=== PATIENT | male | born 1960 | race African-American/Black ===

== ENCOUNTER 2019-04-15 09:56 | Inpatient (IN) | payer OTHER ==
--- NOTE | 2019-04-15 10:11 | BHS.RME ---
Substance Use & Tx History - Substance Use History Alcohol Substance amount: 2-3 pints vodka Frequency of use: Daily Substance route: Oral Date of Last Use: 04/15/19 Nicotine Substance amount: 4-5 ciggs Frequency of use: Daily Substance route: Smoking Date of Last Use: 04/14/19 Cocaine (Powder) Substance amount: $50 Frequency of use: Less than 3 times per week Substance route: Inhalation (ex: sniffing or snorting), Smoking Date of Last Use: 04/14/19 PCP Substance amount: 2-3 bags Frequency of use: Less than 3 times per week Substance route: Smoking Date of Last Use: 04/12/19 Physical/Psych/Mental Status - Behavior General Behavior: Increased activity (restlessness, agitation) Eye Contact: Normal - Cooperativeness Cooperativeness: Cooperative - Thinking Thought Processes: Tight, Logical, Goal Directed Thought content: Future oriented - Physical Health Problems Is patient presently having any pain?: No Does patient presently have any injuries (include location): No Does patient currently have a fever: No Is patient : No CIWA Nausea/Vomitin-No Nausea/No Vomiting Muscle Tremors: None Anxiety: 0-No Anxiety, at Ease Agitation: 0-Normal Activity Paroxysmal Sweats: No Perspiration Orientation: 0-Oriented Tacttile Disturbances: 0-None Auditory Disturbances: 0-None Visual Disturbances: 0-None Headache: 1-Very Mild CIWA-Ar Total Score: 1
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
[2019-04-15] MEDS ORDERED: hydrOXYzine PAMOATE 25 MG CAPSULE (FP) PO PRN (11:39)
[2019-04-15] MEDS ORDERED: chlordiazePOXIDE HCL 25 MG CAPSULE PO PRN (11:39)
[2019-04-15] MEDS ORDERED: IBUPROFEN 400 MG TABLET (FP) PO PRN (11:39)
[2019-04-15] MEDS ORDERED: MAG HYDROX/AL HYDROX/SIMETH 30 ML UNIT-DOSE CUP PO PRN (11:39)
[2019-04-15] MEDS ORDERED: BISMUTH SUBSALICYLATE 524 MG/30 ML UD PO PRN (11:39)
[2019-04-15] MEDS ORDERED: MENTHOL/PHENOL 1 EACH UD MM PRN (11:39)
[2019-04-15] MEDS ORDERED: MELATONIN 5 MG TABLETS PO PRN (11:39)
[2019-04-15] MEDS ORDERED: MAGNESIUM HYDROX 2400MG/30ML ORAL SUSPENSION 30 ML CUP PO PRN (11:39)
[2019-04-15] MEDS ORDERED: ACETAMINOPHEN 325 MG TABLET (FP) PO PRN ×2 (11:39)
[2019-04-15] MEDS ORDERED: MAGNESIUM CITRATE 300 ML BOTTLE PO PRN (11:39)
[2019-04-15] MEDS ORDERED: METHOCARBAMOL 500 MG TABLET PO PRN (11:39)
[2019-04-15 11:59] VITALS: BMI 27.3
[2019-04-15] MEDS: HYDROCHLOROTHIAZIDE 25 MG TABLET (FP) PO SCH (13:59)
[2019-04-15] MEDS ORDERED: INSULIN LISPRO 20 UNIT SQ SCH (14:00)
[2019-04-15] MEDS: ASPIRIN COATED 81 MG TABLET.EC PO SCH (14:00)
[2019-04-15] MEDS: AMOX TR/POT CLAV 875MG/125MG TABLETS (FP) PO SCH ×2 (14:00→23:03)
[2019-04-15] MEDS: chlordiazePOXIDE HCL 25 MG CAPSULE PO SCH ×3 (14:00→23:03)
[2019-04-15 15:06] LABS: HEMATOCRIT 43.8 % (35.4-49); MCH 26.7 pg (25.7-33.7); MEAN CELL VOLUME 83.4 fl (80-96); MEAN PLT VOLUME 10.5 fl (7.5-11.1); PLATELET COUNT 230 K/MM3 (134-434); RBC 5.26 M/mm3 (4.00-5.60); WHITE BLOOD COUNT 7.4 K/mm3 (4.0-10.0)
[2019-04-15] MEDS ORDERED: INSULIN (NOVOLOG) ASPART 100 UNITS/ML 10ML VIAL SQ SCH (15:23)
[2019-04-15] MEDS: PIOGLITAZONE HCL 45 MG PO SCH (15:26)
[2019-04-15] MEDS: CLOTRIMAZOLE/BETAMET DIPROP 15 GM TUBE TP SCH ×2 (15:28→23:02)
[2019-04-15] MEDS: DOCUSATE SODIUM 100 MG CAPSULE (FP) PO SCH ×2 (15:29→23:03)
[2019-04-15] MEDS: GABAPENTIN 300 MG CAPSULE PO SCH ×2 (15:29→23:03)
[2019-04-15] MEDS: NICOTINE 7 MG/24 HOURS TOPICAL PATCH TD SCH (15:33)
[2019-04-15] MEDS ORDERED: INSULIN SLIDING SCALE (NOVOLOG) 1 VIAL SQ SCH (16:30)
[2019-04-15] MEDS ORDERED: metFORMIN HCL 500 MG TABLET (FP) PO SCH (16:30)
[2019-04-15] MEDS: METFORMIN HCL 1000 MG PO SCH (17:13)
[2019-04-15] MEDS: INSULIN SLIDING SCALE (NOVOLOG) 1 VIAL SQ SCH ×2 (19:15→23:04)
[2019-04-15] MEDS ORDERED: INSULIN (LEVEMIR) 100 UNITS/ML UNITS SQ SCH (22:00)
[2019-04-15] MEDS ORDERED: ATORVASTATIN CA 20 MG TABLET (FP) PO SCH (22:00)
[2019-04-15] MEDS: BASAGLAR U SQ SCH (23:02)
[2019-04-15] MEDS: [UNRECOGNIZED DRUG - OTHER] SQ SCH (23:02)
[2019-04-15] MEDS: THIAMINE HCL 100 MG TABLET (FP) PO SCH (23:03)
[2019-04-15] MEDS: SIMVASTATIN 40MG TAB PO SCH (23:04)
[2019-04-16] MEDS: GABAPENTIN 300 MG CAPSULE PO SCH ×3 (06:10→22:57)
[2019-04-16] MEDS: DOCUSATE SODIUM 100 MG CAPSULE (FP) PO SCH ×3 (06:14→22:57)
[2019-04-16] MEDS: METFORMIN HCL 1000 MG PO SCH ×2 (06:15→18:37)
[2019-04-16] MEDS: chlordiazePOXIDE HCL 25 MG CAPSULE PO SCH ×4 (06:15→22:58)
[2019-04-16] MEDS: INSULIN SLIDING SCALE (NOVOLOG) 1 VIAL SQ SCH ×3 (06:44→18:37)
[2019-04-16] MEDS: NICOTINE 7 MG/24 HOURS TOPICAL PATCH TD SCH (09:18)
[2019-04-16] MEDS: AMOX TR/POT CLAV 875MG/125MG TABLETS (FP) PO SCH ×2 (09:18→22:56)
[2019-04-16] MEDS: HYDROCHLOROTHIAZIDE 25 MG TABLET (FP) PO SCH (09:18)
[2019-04-16] MEDS: ASPIRIN COATED 81 MG TABLET.EC PO SCH (09:18)
[2019-04-16] MEDS ORDERED: PRENATAL VITAMINS W/ FOLIC ACID TABLET (FP) PO SCH (10:00)
[2019-04-16] MEDS: CLOTRIMAZOLE/BETAMET DIPROP 15 GM TUBE TP SCH ×2 (10:33→22:57)
[2019-04-16] MEDS: PIOGLITAZONE HCL 45 MG PO SCH (10:34)
[2019-04-16 10:35] LABS: ALBUMIN 3.9 g/dl (3.4-5.0); BILIRUBIN,TOTAL 0.2 mg/dL (0.2-1); BLOOD UREA NITROGEN 25.7 mg/dL (7-18); CALCIUM 10.2 mg/dL (8.5-10.1); CREATININE 1.3 mg/dL (0.55-1.3); POTASSIUM 4.4 mmol/L (3.5-5.1)
[2019-04-16] MEDS ORDERED: INSULIN SLIDING SCALE (NOVOLOG) 1 VIAL SQ ONE (11:57)
[2019-04-16 13:12] VITALS: BP 130/83; PULSE 83; TEMP 97.8
--- NOTE | 2019-04-16 15:38 | PN ---
[facility] CIWA - CIWA Score Nausea/Vomitin-No Nausea/No Vomiting Muscle Tremors: 1-None Visible, but [place] Anxiety: 1-Mildly Anxious Agitation: 0-Normal Activity Paroxysmal Sweats: No Perspiration Orientation: 0-Oriented Tacttile Disturbances: 1-Very Mild Itch/Numbness Auditory Disturbances: 0-None Visual Disturbances: 1-Very Mild Sensitivity Headache: 3-Moderate (chest pain) CIWA-Ar Total Score: 7 BHS Progress Note (SOAP) Subjective: 58 years old male admitted on 04/15/19 for alcohol withdrawal sx management treating with [facility] reports severe chest pain numbness of left hemisphere and weakness of the legs ambulating on hallway "I just want to heating up my food" patient is holding on the cane leaning to the wall two male patients assisting the patient back to his room offer wheel chair and call belt Mr reports that pins and screws make legs weak and numb due to the risk factors of alcohol, hypertension, diabetes, hypercholesterolemia , and cardio artery disease ER evaluate is necessary information provided to Dr Sexton proposition: return to [facility] for alcohol detox and possible addiction consultation for continuity of alcohol detox Objective: 04/16/19 15:53 Vital Signs Temperature 97.8 F 04/16/19 13:00 Pulse Rate 83 04/16/19 13:00 Respiratory Rate 18 04/16/19 13:00 Blood Pressure 130/83 04/16/19 13:00 O2 Sat by Pulse Oximetry (%) Laboratory Last Values WBC 7.4 K/mm3 (4.0-10.0) 04/15/19 11:55 RBC 5.26 M/mm3 (4.00-5.60) 04/15/19 11:55 Hgb 14.0 GM/dL (11.7-16.9) 04/15/19 11:55 Hct 43.8 % (35.4-49) 04/15/19 11:55 MCV 83.4 fl (80-96) 04/15/19 11:55 MCH 26.7 pg (25.7-33.7) 04/15/19 11:55 MCHC 32.0 g/dl (32.0-35.9) 04/15/19 11:55 RDW 14.0 % (11.9-15.9) 04/15/19 11:55 Plt Count 230 K/MM3 (134-434) 04/15/19 11:55 MPV 10.5 fl (7.5-11.1) 04/15/19 11:55 Sodium 136 mmol/L (136-145) 04/16/19 07:40 Potassium 4.4 mmol/L (3.5-5.1) 04/16/19 07:40 Chloride 102 mmol/L (98-107) 04/16/19 07:40 Carbon Dioxide 26 mmol/L (21-32) 04/16/19 07:40 Anion Gap 7 MMOL/L (8-16) L 04/16/19 07:40 BUN 25.7 mg/dL (7-18) H 04/16/19 07:40 Creatinine 1.3 mg/dL (0.55-1.3) 04/16/19 07:40 Est GFR (CKD-EPI)AfAm 68.74 04/16/19 07:40 Est GFR (CKD-EPI)NonAf 59.31 04/16/19 07:40 POC Glucometer 397 UNITS (80-120) 04/16/19 10:41 Random Glucose 448 mg/dL (74-106) H* 04/16/19 07:40 Calcium 10.2 mg/dL (8.5-10.1) H 04/16/19 07:40 Total Bilirubin 0.2 mg/dL (0.2-1) 04/16/19 07:40 AST 22 U/L (15-37) 04/16/19 07:40 ALT 38 U/L (13-61) 04/16/19 07:40 Alkaline Phosphatase 205 U/L (45-117) H 04/16/19 07:40 Total Protein 7.0 g/dl (6.4-8.2) 04/16/19 07:40 Albumin 3.9 g/dl (3.4-5.0) 04/16/19 07:40 RPR Titer Nonreactive (NONREACTIVE) 04/15/19 11:55 HIV 1&2 Antibody Screen Negative 04/15/19 11:55 HIV P24 Antigen Negative 04/15/19 11:55 lab noted bun and glucose elevation Assessment: 04/16/19 15:54 alcohol withdrawal pneumonia Plan: [facility] augmentin 875 mg po bid
[2019-04-16] MEDS: BASAGLAR U SQ SCH (22:57)
[2019-04-16] MEDS: SIMVASTATIN 40MG TAB PO SCH (22:57)
[2019-04-16] MEDS: [UNRECOGNIZED DRUG - OTHER] SQ SCH (22:57)
[2019-04-16] MEDS: THIAMINE HCL 100 MG TABLET (FP) PO SCH (22:58)
[2019-04-17] MEDS ORDERED: chlordiazePOXIDE HCL 25 MG CAPSULE PO SCH (05:00)
[2019-04-17] MEDS ORDERED: PIOGLITAZONE HCL 15 MG TABLET PO SCH (07:00)
[2019-04-18] MEDS ORDERED: chlordiazePOXIDE HCL 10 MG CAPSULE PO PRN
[2019-04-18] MEDS ORDERED: chlordiazePOXIDE HCL 10 MG CAPSULE PO SCH (05:00)
[2019-04-19] MEDS ORDERED: chlordiazePOXIDE HCL 10 MG CAPSULE PO SCH (05:00)
[2019-04-20] MEDS ORDERED: chlordiazePOXIDE HCL 10 MG CAPSULE PO ONE (05:00)
== END 2019-04-16 23:48 | disposition short-term general hospital (02) | DRG 774 ==
LOC: YASAS 09:56 → Y3N 12:38
PROVIDERS: ADMIT Allergy & Immunology; ATTEND Allergy & Immunology
PROC: HZ2ZZZZ Detoxification Services for Substance Abuse Treatment (ICD-10-PCS; principal; 2019-04-15)
DX: F10.230 Alcohol dependence with withdrawal, uncomplicated (principal); F14.20 Cocaine dependence, uncomplicated; F16.20 Hallucinogen dependence, uncomplicated; F17.210 Nicotine dependence, cigarettes, uncomplicated; I25.10 Atherosclerotic heart disease of native coronary artery without angina pectoris; I10 Essential (primary) hypertension; E78.5 Hyperlipidemia, unspecified; E11.9 Type 2 diabetes mellitus without complications; Z79.4 Long term (current) use of insulin; E78.00 Pure hypercholesterolemia, unspecified; J18.9 Pneumonia, unspecified organism
CPT/HCPCS: 36415; 71046-TC-FY; 80053; 82962; 85027; 86593; 87389